=== PATIENT | male | born 1985 | race Caucasian/White ===

== ENCOUNTER 2020-05-07 07:38 | Emergency (ER) | payer OTHER, SELFPAY ==
[2020-05-07] VITALS (10 sets, daily range): BP systolic 114–135; BP diastolic 78–99; PULSE 59–86; RESP 10–25; TEMP 36.6; O2SAT 96–100
--- NOTE | ~2020-05-07 | XR_ITS ---
EXAMINATION: XR chest 2V EXAM DATE: 05/07/2020 08:42 INDICATION: Syncope, weakness, no cardiac history. TECHNIQUE: Frontal and lateral projections of the chest obtained and reviewed. There is no prior nelly dy for comparison. FINDINGS: The lungs are clear. There are no pleural effusions. The cardiomediastinal silhouette is within normal limits. There is no pneumothorax suspected. The bones and soft tissues are unremarkab le. IMPRESSION: No acute cardiopulmonary findings. Reviewed, dictated and finalized at location B. [employer]
--- NOTE | 2020-05-07 07:58 | ECG_ITS ---
Measurements Intervals [place] Rate: 64 P: 20 AL: 158 QRS: 18 QRSD: 99 T: 20 QT: 360 QTc: 374 Interpretive Statements SINUS RHYTHM WITH SINUS ARRHYTHMIA NORMAL ECG Electronically Signed On 05-07-2020 8:12:18 [employer]ACING [employer] by Momo Rodriguez D.O.
[2020-05-07 08:13] LABS: Basophils Absolute Auto 0.1 K/mm3 (0.0-0.1); Basophils Percent Auto 0.3 % (0.2-1.2); Eosinophils Absolute Auto 0.1 K/mm3 (0-0.3); Eosinophils Percent Auto 0.7 % (0-4.4); Hematocrit 46.6 % (42.0-52.0); Hemoglobin 16.1 g/dL (14.0-18.0); Immature Granulocyte Absolute 0.06 K/mm3 (0.00-0.031); Immature Granulocyte Percent A 0.4 % (0-0.5); Lymphocytes Absolute Auto 1.18 K/mm3 (0.9-3.2); Lymphocytes Percent Auto 7.9 % (18.3-44.2); Mean Corpuscular HGB Conc 34.5 g/dl (32-36); Mean Corpuscular Volume 86.9 fl (80-100); Mean Platelet Volume 9.8 fl (7.4-10.4); Monocytes Absolute Auto 0.7 K/mm3 (0.1-0.6); Monocytes Percent Auto 4.8 % (2.6-8.5); Neutrophils Absolute Auto 12.7 K/mm3 (1.3-6.7); Neutrophils Percent Auto 85.9 % (45.5-73.1); Platelet Count Result 252 k/mm3 (150-375); Red Blood Count 5.36 M/mm3 (4.6-6.20); Red Cell Distribution Width 11.8 % (11.5-14.5); White Blood Count 14.9 K/mm3 (4.5-10.0)
[2020-05-07 08:21] LABS: INR 0.9; Prothrombin Time 13.1 Seconds (11.1-14.7)
[2020-05-07 08:22] LABS: Partial Thromboplastin Time 24.4 SECONDS (22.3-36.8)
[2020-05-07 08:24] LABS: Alanine Aminotransferase 21 U/L (4-50); Albumin Level 4.3 g/dL (3.5-5.1); Alkaline Phosphatase 57 U/L (38-126); Anion Gap 5 mmol/L (8-16); Aspartate Amino Transferase 28 U/L (17-59); Bilirubin,Total 0.6 mg/dL (0.2-1.3); Blood Urea Nitrogen 14 mg/dL (9-20); Calcium 8.6 mg/dL (8.4-10.2); Carbon Dioxide 31 mmol/L (22-30); Chloride 106 mmol/L (98-107); Estimated CRCL calculation 98 ml/min; Estimated Glomerular Filt Rate > 60; Glucose 96 mg/dL (75-110); Potassium 4.1 mmol/L (3.4-5.0); Sodium 142 mmol/L (137-145)
--- NOTE | 2020-05-07 08:30 | ED.SYNCOPE ---
HPI - Syncope General Chief Complaint: Syncope Stated Complaint: fainted at work Time Seen by Provider: 05/07/20 07:47 Source: patient Limitations: no limitations History of Present Illness HPI narrative: 35 years old white male came to the emergency room because of syncope prior to arrival. Patient started working at 6 AM, standing position, suddenly felt hot, sweaty and going to faint. In the way down to the floor one of the coworkers help him out to go down slowly without any trauma or injury. Patient reports tremendous of amount of stress lately, Currently feeling back to normal 100%. Patient had similar symptoms 1 and half year ago without any specific diagnosis. Patient smokes cigarettes and marijuana, last marijuana use was last night before going to bed. Patient denies any alcohol or any other drug use. Related Data Allergies Allergy/AdvReac Type Severity Reaction Status Date / Time loperamide Allergy Unknown Verified 08/07/08 13:03 Penicillins Allergy SWELLING Verified 09/26/12 14:18 Review of Systems Review of Systems: Narrative: CONSTITUTIONAL: Denies fever, chills, or sweats. EYES: Denies visual changes, redness, or discharge. ENT: Denies rhinorrhea, congestion, sore throat, or otalgia. CARDIOVASCULAR: Denies chest pain, palpitations, or edema. RESPIRATORY: Denies cough or dyspnea. GASTROINTESTINAL: Denies abdominal pain, nausea, vomiting, or diarrhea. GENITOURINARY: Denies dysuria or hematuria. SKIN: Denies rash or itching. MUSCULOSKELETAL: Denies back pain, joint pain, or myalgia. NEUROLOGIC: Denies headache, numbness, or weakness. PSYCHIATRIC: Denies anxiety or depression. Exam Narrative: Exam Narrative: General appearance: Well-developed, well-nourished Skin: Normal color Head: Normocephalic, nontraumatic Eyes: Clear conjunctiva ENT: Oropharynx normal, ears normal, nose normal Neck: Supple, nontender Chest and respiratory: Airway patent, no respiratory distress, no accessory muscle use Heart: Regular rate/rhythm Abdomen: Soft, nontender, no organomegaly, quiet bowel sounds Vascular: Normal peripheral pulses, normal capillary refill. Musculoskeletal: Normal range of motion, nontender back Neurologic: Alert and oriented ?3, [employer] is normal as tested, no gross motor deficit Course Course Emergency Course: Stable Vital Signs Vital signs: Vital Signs Temperature 36.6 C 05/07/20 07:50 Pulse Rate 66 05/07/20 07:50 Respiratory Rate 16 05/07/20 07:50 Blood Pressure 135/99 H 05/07/20 07:50 Pulse Oximetry 100 05/07/20 07:50 Temperature 36.6 C 05/07/20 07:50 Pulse Rate 86 05/07/20 08:11 Respiratory Rate 16 05/07/20 07:50 Blood Pressure 133/79 05/07/20 08:11 Pulse Oximetry 100 05/07/20 07:50 MDM - Syncope MDM Narrative Medical decision making narrative: Patient presents with syncope. Orthostatic hypotension, stress induced are my concern. Labs, urine drug screen, UA, chest x-ray, orthostatic blood pressure ordered. Further plan to follow Differential Diagnosis Differential diagnosis: Likely syncope due to orthostatic hypotension, vasovagal syncope and dehydration Lab Data Result diagrams: 05/07/20 08:02 05/07/20 08:02 Labs: Lab Results 05/07/20 05/07/20 05/07/20 Range/Units 08:02 08:02 08:02 WBC 14.9 H (4.5-10.0) K/mm3 RBC 5.36 (4.6-6.20) M/mm3 Hgb 16.1 (14.0-18.0) g/dL Hct 46.6 (42.0-52.0) % MCV 86.9 (80-100) fl MCH 30.0 (26-34) pg MCHC 34.5 (32-36) g/dl RDW 11.8 (11.5-14.5) % Plt Count 252 (150-375) k/mm3 MPV 9.8 (7.4-10.4) fl Immature Gran % (Auto) 0.4 (0-0.5) % Neut % (Auto) 85.9 H (45.5-73.1)
[2020-05-07 08:36] LABS: Troponin I < 0.012 ng/mL (0.000-0.034)
[2020-05-07 08:40] LABS: Amphetamine Screen Urine Negative (Negative); Barbiturate Screen Urine Negative (Negative); Benzodiazepines Screen Urine Positive (Negative); Cannabinoid Screen Urine Positive (Negative); Cocaine Screen Urine Negative (Negative); Methadone Screen Urine Negative (Negative); Opiate Screen Urine Negative (Negative); Phencyclidine Screen Urine Negative (Negative)
[2020-05-07 08:45] LABS: Glucose Point of Care 115 (65-105)
== END 2020-05-07 09:50 | disposition home or self-care (01) ==
PROVIDERS: Emergency Provider Emergency Medicine; PCP Family Medicine
DX: R55 Syncope and collapse (principal); F12.10 Cannabis abuse, uncomplicated; F13.10 Sedative, hypnotic or anxiolytic abuse, uncomplicated; F17.210 Nicotine dependence, cigarettes, uncomplicated
CPT/HCPCS: 36415; 71046; 80053; 80307; 82948; 84484; 85025; 85610; 85730; 93005; 99284

== ENCOUNTER 2020-06-26 17:18 | Outpatient (CLI) | payer OTHER, SELFPAY | END 2020-06-26 17:19 | disposition home or self-care (01) | LOC: ANHCOVIDVC 17:21 | PROVIDERS: PCP Family Medicine | DX: Z23 Encounter for immunization (principal) | CPT/HCPCS: 0001A; 91300 ==

== ENCOUNTER 2020-07-17 17:14 | Outpatient (CLI) | payer OTHER, SELFPAY | END 2020-07-17 17:15 | disposition home or self-care (01) | LOC: ANHCOVIDVC 17:14 | PROVIDERS: PCP Family Medicine | DX: Z23 Encounter for immunization (principal) | CPT/HCPCS: 0002A; 91300 ==